=== PATIENT | female | born 1945 | race Caucasian/White ===

== ENCOUNTER 2018-10-17 15:36 | Emergency (ER) | payer OTHER ==
[~2018-10-17] VITALS: Ht 175.3 cm; Wt 102.1 kg
[~2018-10-17 15:36] MED LIST: SYNTHROID75 MCG PO; VISTARIL 25 MG25 M1 PO
[2018-10-17 16:38] LABS: ABSOLUTE NEUTROPHILS 5.6 thou/uL (1.4-8.2); BASOPHILS 0.7 % (0.0-2.0); EOSINOPHILS 1.3 % (0.0-3.0); HEMATOCRIT 39.1 % (37.0-47.0); HEMOGLOBIN 13.7 gm/dL (12.0-15.0); LYMPHOCYTES 22.5 % (24.0-44.0); MCH 33.3 pg (26.0-34.0); MCHC 34.9 g/dL (28.0-37.0); MCV 95.4 fL (80.0-100.0); PLATELET COUNT 178 thou/uL (150-400); POLYS 70.5 % (36.0-66.0); WBC 7.9 thou/uL (4.0-11.0)
[2018-10-17 16:46] LABS: CALCIUM 8.9 mg/dL (8.5-10.1); POTASSIUM 3.5 mmol/L (3.5-5.1)
[2018-10-17 16:52] LABS: ALBUMIN 3.7 g/dL (3.4-5.0); TOTAL BILIRUBIN 0.5 mg/dL (<0.1-1.0); TOTAL PROTEIN 7.3 g/dL (6.4-8.2)
[2018-10-17 17:32] VITALS: BP 158/92
[2018-10-17] MEDS ORDERED: LIDOCAINE 4% K1 EACH TRANSDERM (17:58)
== END 2018-10-17 17:40 | disposition home or self-care (01) ==
LOC: ER 15:36
PROVIDERS: Emergency Medicine
DX: K42.9 Umbilical hernia without obstruction or gangrene (principal); E27.8 Other specified disorders of adrenal gland; F41.9 Anxiety disorder, unspecified; Z86.73 Personal history of transient ischemic attack (TIA), and cerebral infarction without residual deficits; Z85.3 Personal history of malignant neoplasm of breast

== ENCOUNTER 2018-11-18 10:18 | Inpatient (IN) | payer OTHER ==
[~2018-11-18] VITALS: Ht 175.3 cm; Wt 102.1 kg
--- NOTE | ~2018-11-18 | HC ---
[facility] [place] [address] CONSULTATION Name: ANOOP MONTOYA Room #: 459-P ADM IN M.R.#: [id number] Admission: 11/18/18 ������������������ Attend Phys: Kevyn Ruiz MD Discharge: ������������������ Date of : 47 Report #: [id number] THIS REPORT FOR: //name// CC: JACINTO physician/PCP Kevyn Ruiz DATE OF SERVICE: 11/18/2018 HISTORY OF PRESENT ILLNESS: This is a 73-year-old female patient who was evaluated by me for a nonspecific history. I reviewed the patient, record in the computer and tried to get some history from the patient. I can find a very good history. She said she is under a lot of stress. She started having some difficulty finding the word about 2-3 weeks ago. She may have been confused. It has progressively become severe. She does not know anything, which makes it better or worse. She also has difficulty walking and it is not clear how long that is going on or whether that is associated with this or not. She thinks she has a good control of her bladder. REVIEW OF SYSTEMS: She states she had a stroke in the past, which she does not give a good history. She has a history of breast cancer. She has a history of coronary artery disease. Symptoms appeared to be going on at least for several days. She does say she has hypothyroidism. She thinks she has memory problem. She does feel depressed, but she does not think she does too bad. She does have difficulty with breathing in the past, but it is not clear what that was from. She denies any new eye, ENT, cardiac, GI, , musculoskeletal, constitutional, dermatological, hematological, psychiatric, throat, allergic symptom associated with present symptomatology. PAST MEDICAL HISTORY: Positive for stroke but she does not describe what happened during the stroke. FAMILY HISTORY: Negative for any early age stroke. SOCIAL HISTORY: She said she does not drink alcohol. PHYSICAL EXAMINATION: NEUROLOGICAL: Indicate she is alert. She can tell me what month it is. Her memory is poor. Fund of knowledge is poor. She talks lot of time relevantly. I do not know whether that is aphasia or not. Cranial nerve examination 2 through 12 mostly looks unremarkable. She is weak in all 4 extremities, especially so in the lower extremities, but she states her position sense is present. Reflexes are difficult to elicit. She can do cerebellar sign. There is no carotid bruit. I could not look at the fundus because she could not cooperate. [facility] [address] [place] [address] CONSULTATION Name: ANOOP MONTOYA Room #: 459-P [facility] IN .R.#: [id number] Admission: 11/18/18 ������������������ Attend Phys: Kevyn Ruiz MD Discharge: ������������������ Date of : 47 Report #: [id number] EXTREMITIES: Her pulses are difficult to feel. She has no edema, cyanosis or jaundice. GENERAL: She is obese. HEENT: Her hearing and visual looks adequate. NECK: She has no thyroid mass. CARDIORESPIRATORY: No respiratory difficulty or rhonchi was noticed. VITAL SIGNS: Her blood pressure is 152/91. LABORATORY DATA: Indicated normal white count. Potassium is trace low at 3.2. She did have a CT scan of the head, which was mostly unremarkable. IMPRESSION: With such poor history, I am not sure what the etiology of the patient's symptom is. She needs more workup to determine that. I discussed that aspect with the patient. PLAN: To get a TSH, vitamin B12 in this patient. I will get an EEG done. I would like to get him start with an MRI of the brain and MRI of the lumbar spine to see what pathology that shows. Further workup will depend upon the outcome of those testing. I discussed that aspect with the patient and she wants to follow that plan. ��������������������������������������������� ���������������������������������������� By: ��������������������������������������������� 1549 0306 Alessandro Virk MD /nt
--- NOTE | ~2018-11-18 | EEG ---
[facility] [place] [address] [place] [address] ELECTROENCEPHALOGRAM Name: ANOOP MONTOYA Room #: 459-P ADM IN M.R.#: [id number] ������������������ Admission: 11/18/18 ������������������ Attend Phys: Kevyn Ruiz MD Discharge: ������������������ Date of : 47 Report #: [id number] ����������������������������������������������������������������� [id number] THIS REPORT FOR: //name// CC: JACINTO physician/PCP Kevyn Ruiz DATE OF SERVICE: 11/19/2018 DESCRIPTION: This patient is being evaluated for altered mental status. EEG was done by placing the electrodes by standard 10-20 system of electrode placement. Both referential and sequential montages were used for recording. Background activity in this patient's EEG is about 9 Hz and 30 microvolt. The patient became drowsy that is associated with bilateral slowing and vertex sharp waves. Photic stimulation is unremarkable. Throughout the record, no active epileptiform activity was noticed. IMPRESSION: This patient's EEG is intermixed with theta range slowing on both sides that is a nonspecific abnormality, which can occur with dementia, encephalopathy, effect of psychotropic medication. Clinical correlation is recommended. ���������������������������������������� ���������������������������������������� By: ��������������������������������������������� 1616 1655 Alessandro Virk MD /nt
[~2018-11-18 10:18] MED LIST changes: +LIDOCAINE 4% K1 EACH TRANSDERM
[2018-11-18 10:30] VITALS: BP 117/57
[2018-11-18 10:53] LABS: URINE BILIRUBIN NEGATIVE (Negative); URINE BLOOD NEGATIVE (Negative); URINE CLARITY CLEAR; URINE COLOR YELLOW; URINE GLUCOSE-RANDOM* NEGATIVE (Negative); URINE KETONES NEGATIVE (Negative); URINE LEUKOCYTES-REFLEX TRACE (Negative); URINE NITRITE-REFLEX NEGATIVE (Negative); URINE PROTEIN (DIPSTICK) NEGATIVE (Negative); URINE SPECIFIC GRAVITY >= 1.030 (1.005-1.035); URINE UROBILINOGEN 0.2 E.U./dl (0.2-1.0)
[2018-11-18 11:11] LABS: ABSOLUTE NEUTROPHILS 6.6 thou/uL (1.4-8.2); BASOPHILS 0.7 % (0.0-2.0); EOSINOPHILS 1.2 % (0.0-3.0); HEMATOCRIT 38.3 % (37.0-47.0); HEMOGLOBIN 13.1 gm/dL (12.0-15.0); LYMPHOCYTES 15.7 % (24.0-44.0); MCH 33.2 pg (26.0-34.0); MCHC 34.2 g/dL (28.0-37.0); MONOCYTES 5.1 % (1.0-8.0); PLATELET COUNT 182 thou/uL (150-400); POLYS 77.3 % (36.0-66.0); RBC 3.95 mil/uL (4.20-5.00); RDW 13.9 % (10.5-14.5); WBC 8.5 thou/uL (4.0-11.0)
[2018-11-18 11:20] LABS: CALCIUM 9.1 mg/dL (8.5-10.1); POTASSIUM 3.2 mmol/L (3.5-5.1)
[2018-11-18 11:24] LABS: ALBUMIN 3.9 g/dL (3.4-5.0); TOTAL BILIRUBIN 0.3 mg/dL (<0.1-1.0); TOTAL PROTEIN 7.4 g/dL (6.4-8.2)
--- NOTE | 2018-11-18 12:24 | EKG ---
[place] [address] [facility] [place] [address] ELECTROCARDIOGRAM REPORT Name: ANOOP MONTOYA [id number] ������������������ Admission: 11/18/18 ������������������ Attend Phys: Discharge: ������������������ Date of : 47 Report #: [id number] ����������������������������������������������������������������� [id number] THIS REPORT FOR: //name// [facility] ED Test Date: 2018-11-18 Test Time: 10:56:56 Pat Name: ANOOP MONTOYA Department: Room: Gender: F Jump Roll Operator: 12 : 1945 Requested By: Selin Hirsch Order Number: [id number] MD: Tyson Bailey Measurements Intervals [facility] Rate: 68 P: 36 WI: 68 QRS: -32 QRSD: 102 T: 4 QT: 507 QTc: 540 Interpretive Statements Sinus rhythm Inferior infarct, old Prolonged QT interval Compared to ECG 05/24/2018 15:22:28 No significant changes Electronically Signed On 11-18-2018 12:24:14 [employer] SALES MANAGER by Tyson Bailey [email or web address] ��������������������������������������������� <ELECTRONICALLY SIGNED> ���������������������������������������� By: Tyson Bailey MD ��������������������������������������������� 11/18/18 1224 1056 1056 Tyson Bailey MD /HARDY
--- NOTE | 2018-11-18 12:51 | NUR ---
PT BROKE DOWN CRYING STATING THAT DAUGHTER CONSTANTLY YELLS AND SCREAMS AT HER. STATED SHE FELT THAT PART OF HER CONFUSION WAS THE DAUGHTERS BEHAVIOR TOWARDS HER. DAUGHTERS OUTBURSTS WERE WITNESSED BY THIS RN LAST TIME PT WAS BROUGHT IN TO ER ON 10/17/18. DAUGHTER WAS IN BR WITH HER MOTHER YELLING AT HER, CALLING HER STUPID BECAUSE SHE WAS HAVING TROUBLE GETTING A URINE SPECIMIN. ELDER ABUSE HOTLINE CALLED AND REPORT MADE AGAINST DAUGHTER.
[2018-11-18 13:14] LABS: INR 1.1; PROTIME 11.3 Seconds (9.3-11.4)
[2018-11-18 14:19] VITALS: BP 117/57
[2018-11-18 14:25] VITALS: BP 158/86
[2018-11-18 15:09] VITALS: BP 152/91
--- NOTE | 2018-11-18 15:59 | 2DMMODE ---
[facility] [address] [place] [address] 2 D/M-MODE ECHOCARDIOGRAM Name: JANANOOP Room #: 459-P ADM IN M.R.#: [id number] ������������� Admission: 11/18/18 ������������� Attend Phys: Kevyn Ruiz, Discharge: ��� ������������� ��� Date of : 47 Date of Service: 11/18/18 1558 �� Report #: [id number] �������� ��������������������������������������������[id number] THIS REPORT FOR: //name// APPROVED REPORT Study performed: 11/18/2018 15:10:58 EXAM: Comprehensive 2D, Doppler, and color-flow Echocardiogram Patient Location: Bedside Room #: 459 Status: routine BSA: 2.17 HR: 66 bpm BP: 158/86 mmHg Rhythm: NSR Other Information Study Quality: Adequate Technically limited study due to obesity. Indications Question TIA. Hx:CA, stents. Echo Enhancing Agent Indication: Rule out Shunt Agent(s) / Amount(s) Used: Agitated Saline 7 cc 2D Dimensions RVDd: 33.37 mm IVSd: 12.21 (7-11mm) LVOT Diam: 20.98 (18-24mm) LVDd: 47.37 mm PWd: 10.13 (7-11mm) LVDs: 36.27 (25-40mm) Aortic Root: 31.39 mm Volumes Left Atrial Volume (Systole) Single Plane 4CH: 70.16 mL Single Plane 2CH: 63.32 mL LA ESV Index: 34.00 mL/m2 Aortic Valve AoV Peak Ashok.: 1.41 m/s AO Peak Gr.: 7.99 mmHg LVOT Max P.91 mmHg LVOT Max V: 0.69 m/s HARDIK Vmax: 1.69 cm2 [facility] [place] [address] [place] [address] 2 D/M-MODE ECHOCARDIOGRAM Name: ANOOP MONTOYA Room #: 459- ADM IN .R.#: [id number] ������������� Admission: 11/18/18 ������������� Attend Phys: Kevyn Ruiz, Discharge: ��� ������������� ��� Date of : 47 Date of Service: 11/18/18 1558 �� Report #: [id number] �������� ��������������������������������������������[id number] Mitral Valve E/A Ratio: 0.6 MV Decel. Time: 316.26 ms MV E Max Ashok.: 0.54 m/s MV A Ashok.: 0.91 m/s MV PHT: 91.72 ms IVRT: 115.34 ms Pulmonary Valve PV Peak Ashok.: 0.65 m/s PV Peak Gr.: 1.67 mmHg Tricuspid Valve TR Peak Ashok.: 1.95 m/s RAP Estimate: 5.00 mmHg TR Peak Gr.: 15.18 mmHg PA Pressure: 20.00 mmHg Left Ventricle The left ventricle is normal size. Mild basal septal hypertrophy is present. Left ventricular systolic function is mildly decreased. LVEF is approx 50%. Mild diastolic dysfunction is present (impaired relaxation pattern). Right Ventricle The right ventricle is normal size. The right ventricular systolic function is normal. Atria Left atrium is mildly dilated. No shunting noted with contrast bubble injection. The right atrium size is normal. Aortic Valve The Aortic valve is sclerotic but has adequate excursion. Mild aortic regurgitation. Mitral Valve Mitral valve leaflets are mildly calcified. Mild mitral annular calcification. Trace mitral regurgitation. Tricuspid Valve The tricuspid valve is normal in structure. Mild tricuspid regurgitation. Estimated PAP is 20mmHg. Pulmonic Valve The pulmonary valve is normal in structure. Trace to mild pulmonic regurgitation. [facility] [address] [place] [address] 2 D/M-MODE ECHOCARDIOGRAM Name: ANOOP MONTOYA Room #: 459-P ADM IN M.R.#: [id number] ������������� Admission: 11/18/18 ������������� Attend Phys: Kevyn Ruiz, Discharge: ��� ������������� ��� Date of : 47 Date of Service: 11/18/18 1558 �� Report #: [id number] �������� ��������������������������������������������[id number] Great Vessels The aortic root is normal in size. IVC is normal in size and collapses >50% with inspiration. Pericardium Small anterior pericardial effusion noted. <Conclusion> The left ventricle is normal size. LVEF is approx 50%. Left atrium is mildly dilated. The Aortic valve is sclerotic but has adequate excursion. Mild aortic regurgitation. Mitral valve leaflets are mildly calcified. Mild mitral annular calcification. Trace mitral regurgitation. The tricuspid valve is normal in structure. Mild tricuspid regurgitation. Estimated PAP is 20mmHg. The pulmonary valve is normal in structure. Trace to mild pulmonic regurgitation. Small anterior pericardial effusion noted. No shunting noted with contrast bubble injection. ��������������������������������������������� <ELECTRONICALLY SIGNED> ���������������������������������������� By: Tyson Bailey MD ��������������������������������������������� 11/18/18 1558 1558 1558 Tyson Bailey MD /INF
[2018-11-18 16:00] LABS: TSH 31.664 uIU/mL (0.358-3.740)
[2018-11-18 18:57] VITALS: BP 100/77
--- NOTE | 2018-11-18 19:42 | NUR ---
[age] YEAR OLD FEMALE ADMITTED TO WEST ROOM 459 UNDER THE CARE OF DR. OWEN. PT WAS BROUGHT IN TO THE ER BY DAUGHTER, AND SON DUE TO CONFUSION, AND POSSIBLE TIA. PT ALERT AND ORIENTED TIMES THREE. VSS, SR ON TELE. PT DENIES PAIN, BUT C/O LEGS "FEELING HEAVY" PT TOLERATED DINNER. SON AT BEDSIDE.
[2018-11-19 03:50] VITALS: BP 105/75
--- NOTE | 2018-11-19 05:42 | NUR ---
Pt. rested quietly most of the night when checked on during frequent rounds. She offers no c/o pain. Up to the bathroom with walker,gait belt and assistance of one. Bed alarm is on.
[2018-11-19 05:47] LABS: ABSOLUTE NEUTROPHILS 5.2 thou/uL (1.4-8.2); BASOPHILS 0.8 % (0.0-2.0); EOSINOPHILS 1.9 % (0.0-3.0); HEMATOCRIT 36.5 % (37.0-47.0); HEMOGLOBIN 12.5 gm/dL (12.0-15.0); LYMPHOCYTES 19.7 % (24.0-44.0); MCH 33.3 pg (26.0-34.0); MCHC 34.2 g/dL (28.0-37.0); MCV 97.2 fL (80.0-100.0); MONOCYTES 6.4 % (1.0-8.0); PLATELET COUNT 174 thou/uL (150-400); POLYS 71.2 % (36.0-66.0); RBC 3.76 mil/uL (4.20-5.00); RDW 14.1 % (10.5-14.5); WBC 7.4 thou/uL (4.0-11.0)
[2018-11-19 06:07] LABS: ANION GAP 9 mmol/L (7-16); BUN 14 mg/dL (7-18); CHLORIDE 103 mmol/L (98-107); CHOLESTEROL 307 mg/dL (<200); CO2 29 mmol/L (21-32); GLUCOSE 108 mg/dL (74-106); HDL CHOLESTEROL 30 mg/dL (>40); LDL CHOLESTEROL 247 mg/dL (<100); MAGNESIUM 2.1 mg/dL (1.8-2.4); POTASSIUM 3.5 mmol/L (3.5-5.1); SERUM ASSESSMENT Clear; SODIUM 141 mmol/L (136-145); TC:HDL 10.2 Ratio (Not establshd); TRIGLYCERIDE 152 mg/dL (<150); VLDL 30 mg/dL (<40)
[2018-11-19 08:11] VITALS: BP 132/88
--- NOTE | 2018-11-19 10:07 | NUR ---
I have reviewed the documentation by TIA GLYNN from 11/19/18 to 11/19/18 and I concur with it. DANNIELLE LAWTON A
--- NOTE | 2018-11-19 11:41 | NUR ---
I was asked to come assess Ayleen to see if she meets criteria for SBH. I completed the UMS Examination.. Please see Dr. Mcfarland notes for the score. She thought today was Friday and the year 1969. Out of 5 objects she could remember 3. She named between 5-9 animals within one minute. She could not draw 11:50 on a clock. She did identify a triangle. Ayleen is A/O to self, city and state only. Ayleen was scheduled for a MRI, so I will go back to assess if she meets SBH criteria.
--- NOTE | 2018-11-19 14:27 | NUR ---
PT ADMITTED RELATED TO ALTERED MENTAL STATUS/ANXIETY/WEAKNESS. CM REVIEWED CHART AND SPOKE WITH CARE TEAM. DURING THIS TIME CARLITA GODINEZ APS WORKER ARRIVED ON UNIT TO VISIT WITH PT. CM AND APS WORKER WENT TOGETHER TO ASSESS PT. PT WAS DROWSY HAVING BEEN OFF THE FLOOR GETTING AN MRI. SHE CLEARED AND INDICATED THAT SHE, HER DTR, EDY AND A FEW PETS HAD BEEN LIVING IN AM APARTMENT WITH 6 STEPS TO ENTER AND NO STEPS INSIDE. SHE INDICATED SHE HAD BEEN INDEPENDENT WITH GAIT AND ADLS FUR POINTER. PT INDICATED NO SME OR HH HX. PT INDICATED HER DTRS SIG OTHER OANH WORTHY IS ALSO INVOLVED IN HER CARE AND VIKKI SHE AND DTR ANTICIPATE MOVING IN WITH OANH UPON DC FROM HOSPITAL. PT INDICATED SHE WAS AGREEABLE SPEAKING WITH DR. ADAM AND THAT SHE MIGHT BE RECEPTIVE TO SHORT TERM POST ACUTE CARE STAY UP ON DC IF INDICATED. CM LEFT CARLITA WITH APS AND PT TO VISIT. CM INDICATED THAT CM WOULD NOTIFY CARLITA WITH APS OF DISCHARGE PLANNING. CM TO FOLLOW INDICATED WITH DC PLANNING.
--- NOTE | 2018-11-19 14:35 | NUR ---
I returned to Ayleen's room to assess to see if she met criteria for SBH. Patricia spoke of her family member who ercently. She denies any depression or anxiety. She stated that when she walks she will use a walker. Patricia knows that she has been having some confusion and indicated that she felt like she has to many things to do and does not know where to start. I informed Dr. Mcfarland.
--- NOTE | 2018-11-19 17:46 | NUR ---
ASSUMED CARE 0700. A/OX3 WITH FORGETFULNESS. VSS, DENIES PAIN. UP WITH WALK TO BATHROOM. INCONSISTANT WITH CALL LIGHT - ON FALL PRECAUTIONS. INDEPENDENT WITH MEALS. MRI OF HEAD AND SPINE COMPLETED TODAY. ST ON TELE. FOLLOWED BY [facility], PT,OT,ST., DR JANG AND DR ADAM. FAMILY FRIEND OANH WAITING HERE FROM S REGARDING DISCHARGE PLACEMENT. CALL LIGHT IN REACH. ALARM SET.
[2018-11-20 04:06] LABS: HEMATOCRIT 37.5 % (37.0-47.0); HEMOGLOBIN 12.7 gm/dL (12.0-15.0); MCHC 33.8 g/dL (28.0-37.0); MCV 97.8 fL (80.0-100.0); RBC 3.83 mil/uL (4.20-5.00); RDW 14.4 % (10.5-14.5); WBC 7.1 thou/uL (4.0-11.0)
[2018-11-20 04:09] VITALS: BP 124/74
[2018-11-20 04:14] LABS: CALCIUM 8.3 mg/dL (8.5-10.1); POTASSIUM 3.6 mmol/L (3.5-5.1)
--- NOTE | 2018-11-20 06:57 | NUR ---
Pt. has been restless at times during the night when checked on during frequent rounds. She has alarmed her bed alarm frequently. Pt. has been toileted. She denies pain or discomfort.
[2018-11-20 07:31] VITALS: BP 126/65
--- NOTE | 2018-11-20 15:33 | NUR ---
ASSUMED CARE 0700. ALERTX2 WITH FORGETFULLNESS AND CONFUSION. PAIN AFTER WORKING WITH PT THAT RESOLVE WITH PAIN MEDICATION. MRI OF T-SPINE COMPLETED. FALL PRECAUTIONS IN PLACE. PT DOES NOT CALL FOR ASSISTANCE. IMPULSIVE. PLANS FOR PLACMENT WITH REHAB ONCE SHE DC'S. FOLLOWED BY DR JANG, PT, AND OT. CONTINUE TO MONITOR
--- NOTE | 2018-11-20 16:56 | NUR ---
PT WAS ASSESSED BY [facility] AND THEY INDICATED PT WOULD BE MORE APPROPRIATE FOR SKILLED. CM PROVIDED PT WITH A [employer] SNF LIST AND SHE INIDCATED SHE WOULD LOOK IT OVER WITH HER FAMILY AND LET CM KNOW WHERE SHE IS INTERESTED IN HAVING REFERRALS SENT. CM TO FOLLOW INDIATED WITH DC PLANNING.
[2018-11-20 20:49] VITALS: BP 119/65
--- NOTE | 2018-11-21 03:48 | NUR ---
PT AGITATED AND CONFUSED DURING THE NIGHT PT GOT UP MULTIPLE TIMES TO GO TO BATHROOM SETTING OFF BED ALARM PT ORIENTATED TO ROOM AND CALL LIGHT MULTIPLE TIMES BUT STILL GETS UP WO ASSISTANCE.
[2018-11-21 04:48] LABS: HEMATOCRIT 39.6 % (37.0-47.0); HEMOGLOBIN 13.4 gm/dL (12.0-15.0); MCH 32.9 pg (26.0-34.0); MCHC 33.8 g/dL (28.0-37.0); MCV 97.4 fL (80.0-100.0); RBC 4.07 mil/uL (4.20-5.00); RDW 14.1 % (10.5-14.5); WBC 7.3 thou/uL (4.0-11.0)
[2018-11-21 04:54] VITALS: BP 154/84
[2018-11-21 05:00] LABS: CALCIUM 8.8 mg/dL (8.5-10.1); CREATININE 0.9 mg/dL (0.6-1.0); POTASSIUM 3.6 mmol/L (3.5-5.1)
[2018-11-21 09:27] VITALS: BP 121/64
[2018-11-21 15:10] VITALS: BP 154/92
--- NOTE | 2018-11-21 17:57 | NUR ---
PT A&OX2, VSS, NO SIGNS OF DISTRESS. PT HAS VISITED WITH FAMILY THROUGH OUT THE DAY. PT AND FAMILY AWARE THAT NO PASS CAN BE GIVEN TO PT TO ATTEND . PT FORGET AND HAS TO BE REMINDED TO USE CALL LIGHT BEFORE GETTING OUT OF BED AND CHAIR. WILL CONTINUE TO MONITOR.
[2018-11-21 20:03] VITALS: BP 128/87
--- NOTE | 2018-11-22 01:13 | NUR ---
PT CONFUSED DURING THE NIGHT SETTING OFF THE BED ALARM MULTIPLE TIMES PT ORIENTATED TO ROOM AND CALL LIGHT BUT STILL CONFUSED.
[2018-11-22 04:23] LABS: CALCIUM 8.4 mg/dL (8.5-10.1); CREATININE 0.9 mg/dL (0.6-1.0); POTASSIUM 3.4 mmol/L (3.5-5.1)
[2018-11-22 04:31] VITALS: BP 126/70
[2018-11-22 04:48] LABS: HEMATOCRIT 36.4 % (37.0-47.0); HEMOGLOBIN 12.4 gm/dL (12.0-15.0); MCH 33.2 pg (26.0-34.0); MCV 97.6 fL (80.0-100.0); RBC 3.72 mil/uL (4.20-5.00)
[2018-11-22 08:20] VITALS: BP 129/70
--- NOTE | 2018-11-22 11:20 | NUR ---
TOWARDS POC PT A/O X4, FORGETFULL, VSS, AFEBRILE, DENIES PAIN. NO CONCERNS VOICED AT THIS TIME. WILL CONTINUE TO MONITOR.
[2018-11-22 15:30] VITALS: BP 108/61
[2018-11-22 19:40] VITALS: BP 138/73
--- NOTE | 2018-11-23 06:00 | NUR ---
Pt. has rested quietly at short intervals during the night when checked on during frequent rounds. She has sounded off the bed alarm frequently during the night. Pt. offers no c/o pain. Assisted up to the bathroom with gait belt and walker.
[2018-11-23 08:00] VITALS: BP 107/55
--- NOTE | 2018-11-23 09:56 | NUR ---
TOWARDS POC PT A/O X3, CONFUSED AT TIMES, VERY FORGETFULL. NO NV, NO SOA, DENIES PAIN. NO CONCERNS VOICED, FALL RISK PREC. IN PLACE. WILL CONTINUE TO MONITOR.
--- NOTE | 2018-11-23 10:53 | NUR ---
dp sent referral to [facility], patient to wa DEEJAY. ARY sent Nataly at [facility] a text to let her know.
[2018-11-23 15:00] VITALS: BP 152/81
--- NOTE | 2018-11-23 16:37 | NUR ---
CM MET WITH PT AND OANH AT BEDSIDE THIS DAY. THEY REQUESTED THAT REFERRAL BE SENT TO [facility] FOR REVIEW FOR POSSIBLE ADMISSION. [facility] [employer] FAXED REFERRAL AND WE ARE NOW AWAITING INSURANCE AUTH. CM TO FOLLOW INDICATED WITH DC PLANNING.
[2018-11-23 19:22] VITALS: BP 152/86
[2018-11-24 03:23] VITALS: BP 160/84
--- NOTE | 2018-11-24 06:34 | NUR ---
Pt. rested quietly at short intervals during the night when checked on during frequent rounds. She has sounded off her bed alarm often during the night. Assisted to the bathroom with gait belt and walker. Was given a shower early this am.
--- NOTE | 2018-11-24 07:26 | NUR ---
RECEIVED PT CARE APPROX 0715. PT SITTING IN CHAIR. ORIENTED TO SELF. CONFUSED. IRRITABLE. CHAIR ALARM IN PLACE. CALL LIGHT GIVEN. WILL CONT. TO MONITOR.
[2018-11-24 07:27] VITALS: BP 133/73
--- NOTE | 2018-11-24 12:44 | NUR ---
dp sent updates meds, today's pt, ot to [facility].
[2018-11-24 15:04] VITALS: BP 143/85
[2018-11-24] MEDS ORDERED: LIPITOR40 MG PO (15:10)
[2018-11-24] MEDS ORDERED: VISTARIL 25 MG25 M1 PO (15:10)
[2018-11-24] MEDS ORDERED: MIRALAX17 GM PO (15:10)
[2018-11-24] MEDS ORDERED: PROTONIX40 M1 PO (15:10)
[2018-11-24] MEDS ORDERED: SYNTHROID112 MC1 PO (15:10)
[2018-11-24] MEDS ORDERED: B12INJ IM (15:10)
[2018-11-24] MEDS ORDERED: TYLENOL325 MG PO (15:10)
--- NOTE | 2018-11-24 15:15 | NUR ---
CARE TEAM INDICATED THAT PT IS MEDICALLY STABLE TO DISHARGE TO [facility] THIS DAY. HER INSURANCE AUTHORIZED HER STAY. [employer] [facility] ARRANGED FOR [phone]. PT IS AWARE AND AGREEABLE. CM NOTIFIED PT'S DTR'S JONAS HUGO AND CARLITA WITH APS. CHART COPY MADE. ORDERS TO BE FAXED. REPORT TO BE CALLED TO . NO OTHER CM INTERVETNION INDICATED AT THIS TIME CASE CLOSED.
--- NOTE | 2018-11-24 16:33 | NUR ---
ATTEMPTED TO CALL REPORT TO FACILITY. RECEIVING NURSE BUSY AT THIS TIME AND UNBALE TO GET REPORT. CALL BACK NUMBER GIVEN.
== END 2018-11-24 16:45 | DRG 70 ==
LOC: ER 10:18 → 4W 13:40 → EROBS 13:40 → 4W 14:44
PROVIDERS: Nurse Practitioner; Physician Assistant; ADMIT Internal Medicine
DX: G93.41 Metabolic encephalopathy (principal); E43 Unspecified severe protein-calorie malnutrition; F05 Delirium due to known physiological condition; E87.6 Hypokalemia; R26.9 Unspecified abnormalities of gait and mobility; F43.20 Adjustment disorder, unspecified; E03.9 Hypothyroidism, unspecified; G31.9 Degenerative disease of nervous system, unspecified; F41.8 Other specified anxiety disorders; G62.9 Polyneuropathy, unspecified; F43.21 Adjustment disorder with depressed mood; I10 Essential (primary) hypertension; E53.8 Deficiency of other specified B group vitamins; I25.10 Atherosclerotic heart disease of native coronary artery without angina pectoris; E78.5 Hyperlipidemia, unspecified; I25.2 Old myocardial infarction; Z68.33 Body mass index [BMI] 33.0-33.9, adult; Z86.73 Personal history of transient ischemic attack (TIA), and cerebral infarction without residual deficits; Z85.3 Personal history of malignant neoplasm of breast; Z95.5 Presence of coronary angioplasty implant and graft; Z90.12 Acquired absence of left breast and nipple; Z87.891 Personal history of nicotine dependence
CPT/HCPCS: 10045